=== PATIENT | male | born 1935 | race Caucasian/White ===

== ENCOUNTER 2016-12-02 10:30 | Emergency (ER) | payer BC ==
[~2016-12-02] VITALS: Ht 177.8 cm; Wt 106.6 kg
[~2016-12-02 10:30] MED LIST: AMOX-426 PO; ATOR80TA63 PO; DORZ10DR10 OP; FURO80TA86 PO; GLIP-195 PO; HYDR12.585 PO; LISI10TA5 PO; METH5TAB78 PO; WARF2TAB2 PO
[2016-12-02 10:50] VITALS: BP_SYST 117
[2016-12-02 11:28] VITALS: BP_SYST 138
== END 2016-12-02 11:28 | disposition home or self-care (01) ==
LOC: SED 10:30
DX: Z48.01 Encounter for change or removal of surgical wound dressing (principal); E11.9 Type 2 diabetes mellitus without complications; I10 Essential (primary) hypertension; M10.9 Gout, unspecified; N40.0 Benign prostatic hyperplasia without lower urinary tract symptoms; H54.41 Blindness, right eye, normal vision left eye; I48.91 Unspecified atrial fibrillation; Z87.891 Personal history of nicotine dependence; Z90.79 Acquired absence of other genital organ(s); Z79.899 Other long term (current) drug therapy
CPT/HCPCS: 99282

== ENCOUNTER 2017-12-18 09:34 | Inpatient (IN) | payer BC ==
[~2017-12-18] VITALS: Ht 172.7 cm; Wt 113.4 kg
[~2017-12-18 09:34] MED LIST changes: +ATOR-1 PO; -ATOR80TA63 PO; -GLIP-195 PO; +GLIP-212 PO
--- NOTE | 2017-12-18 09:34 | NUR ---
Pt placed in bed 2, EKG is being performed at bedside.
--- NOTE | 2017-12-18 09:35 | NUR ---
Pt presenst to ED c/o SOB and CP x 2 -3 days. Pt h/o HTN,DM and CHF. Pt has difficulty ambulating.
[2017-12-18 09:45] VITALS: BP_SYST 123
--- NOTE | 2017-12-18 10:10 | NUR ---
# 20 gauge angiocath placed to LAC. Use of asceptic technique. Opsite placed over site. Blood return noted. Blood for lab drawn from site. Flushed with 10 cc of normal saline. No evidence of infiltration noted. Patient tolerated well.
[2017-12-18] MEDS ORDERED: NS 500 ML IV ONE (10:30)
[2017-12-18 10:45] LABS: HEMATOCRIT 31.8 % (36-54); HEMOGLOBIN 9.8 g/dL (14.0-18.0); MEAN CORPUSCULAR HEMOGLOBIN 26 pg (27-31); MEAN CORPUSCULAR HGB CONC 31 % (32-36); MEAN CORPUSCULAR VOLUME 84 fL (79.0-98.0); PLATELET COUNT (AUTO) 203 K/uL (130-430); RED BLOOD CELL COUNT(AUTO) 3.78 MIL/uL (4.2-6.2); RED CELL DISTRIBUTION WIDTH 16.7 % (9.0-15.0); WHITE BLOOD COUNT (AUTO) 7.7 K/uL (4.8-10.8)
[2017-12-18 10:55] LABS: ANION GAP 4 (5-15); CALCIUM 9.4 mg/dL (8.4-11.0); CHLORIDE 104 mmol/L (98-107); CREATININE 1.92 mg/dL (0.55-1.30); GLUCOSE 127 mg/dL (70-99); POTASSIUM 4.3 mmol/L (3.5-5.1); SODIUM SERUM 140 mmol/L (136-145); UREA NITROGEN, BLOOD 27 mg/dL (8-21)
[2017-12-18 11:00] LABS: INR 1.4 (0.80-1.20); PROTHROMBIN TIME 14.3 SECS (9.5-12.5)
[2017-12-18 11:04] LABS: ALANINE AMINOTRANSFERASE 18 U/L (12-78); ALBUMIN 3.2 g/dL (3.4-4.8); ASPARTATE AMINOTRANSFERASE 24 U/L (10-37); TOTAL BILIRUBIN 1.1 mg/dL (0.0-1.0)
--- NOTE | 2017-12-18 11:10 | NUR ---
Pt tolerating IVF. No acute distrwess noted.
[2017-12-18] MEDS ORDERED: IOHEXOL 350 mgI/mL, 150 ML INFUS..BTL IV ONE (11:19)
[2017-12-18 11:26] LABS: BASOPHILS % (MANUAL) 0 % (0-2); EOSINOPHILS % (MANUAL) 4 % (0-7); LYMPHOCYTES % (MANUAL) 8 % (20-46); MONOCYTES % (MANUAL) 12 % (0-11)
[2017-12-18] MEDS ORDERED: IOHEXOL 100 ML IV ONE (11:46)
[2017-12-18] MEDS ORDERED: ASPIRIN 81 MG TAB.CHEW PO ONE (12:45)
--- NOTE | 2017-12-18 12:52 | NUR ---
Medication reconciliation completed with information provided by patient. Any prior medication reconciliation on file was reviewed and corrected.
--- NOTE | 2017-12-18 13:08 | NUR ---
ADMISSION NOTE Received patient from ER via [place], received report from BRENDEN ROSE. Patient admitted with diagnosis of CHEST PAIN. Patient oriented to hospital routine, call light, toileting and safety-patient verbalized understanding.
--- NOTE | 2017-12-18 13:13 | NUR ---
Patient will be admitted [facility] Admitted to TELEMETRY unit. Will go to room 122A. Belongings list completed. Summary report printed. Report will be given at bedside.
[2017-12-18 13:24] VITALS: BP_SYST 155
--- NOTE | 2017-12-18 14:30 | NUR ---
Initial Physical Assessment: Patient awake, alert and oriented. Stable. Ambulatory with steady gait. No skin issues. Safety measures in placed. Call light within reach.
--- NOTE | 2017-12-18 14:39 | NUR ---
Cardiac consult called: for chest pain, regarding chest pain, ordered by Dr. Servin, spoke with Marlene.
--- NOTE | 2017-12-18 15:02 | NUR ---
rounds: patient on bed resting. verbalized pain minimal. no distress noted.
--- NOTE | 2017-12-18 16:10 | NUR ---
Nephro consult called: for Dr. Reynoso, regarding renal failure, ordered by Dr. Servin, spoke with Jacqueline.
[2017-12-18 16:40] VITALS: BP_SYST 129
--- NOTE | 2017-12-18 17:31 | NUR ---
rounds: patient on bed resting. no distress noted.
[2017-12-18] MEDS ORDERED: WARFARIN SODIUM 2 MG TABLET PO SCH (18:00)
[2017-12-18 18:53] LABS: BILIRUBIN,URINE NEGATIVE (NEGATIVE); BLOOD, URINE TRACE (NEGATIVE); CLARITY/URINE SL CLOUDY (CLEAR); COLOR,URINE YELLOW (YELLOW); GLUCOSE,URINE NEGATIVE (NEGATIVE); KETONES,URINE NEGATIVE (NEGATIVE); LEUKOCYTE ESTERASE ,URINE 2+ (NEGATIVE); NITRITE, URINE NEGATIVE (NEGATIVE); PH,URINE 6.5 (5.0-8.0); PROTEIN URINE NEGATIVE (NEGATIVE); UROBILINOGEN,URINE 0.2 (0.2-1.0)
[2017-12-18 18:59] LABS: BACTERIA,URINE MODERATE /HPF (None Seen); RBC,URINE 0-3 /HPF (0-3); WBC,URINE 20-50 /HPF (0-3)
--- NOTE | 2017-12-18 19:35 | NUR ---
Closing notes: Patient on bed resting. Stable. Needs attended. Safety measures in placed. Call light within reach. Report given at bedside to ROSE Ramirez.
[2017-12-18 20:20] VITALS: BP_SYST 134
--- NOTE | 2017-12-18 20:20 | NUR ---
Opening notes Pt AAO x4, AGUA CALIENTE, no acute distress noted. VSS, pt denies any pain at this time. Saline lock L. AC 20G clear, patent. Call light within reach. Encouraged pt to call for assistance, pt verbalized understanding. Will continue to monitor.
[2017-12-18] MEDS: DORZOLAMIDE HCL/TIMOLOL MAL. 10 ML EYE DROPS (COSOPT) OP SCH (20:56)
--- NOTE | 2017-12-18 22:25 | NUR ---
Dr. Narvaez here to see pt.
[2017-12-19 00:22] VITALS: BP_SYST 134
--- NOTE | 2017-12-19 02:30 | NUR ---
Rounds Pt asleep. No s/s distress noted. Safety measure in place. Call light within reach. To monitor.
[2017-12-19 03:41] LABS: ANION GAP 2 (5-15); CHLORIDE 103 mmol/L (98-107); CREATININE 2.04 mg/dL (0.55-1.30); GLUCOSE 96 mg/dL (70-99); POTASSIUM 4.1 mmol/L (3.5-5.1); SODIUM SERUM 141 mmol/L (136-145); UREA NITROGEN, BLOOD 30 mg/dL (8-21)
[2017-12-19 03:45] LABS: INR 1.6 (0.80-1.20)
--- NOTE | 2017-12-19 06:05 | NUR ---
Closing notes Pt asleep. No s/s distress noted. L. AC 20G saline lock clear, patent. Call light within reach. Safety measure in place. To endorse to am nurse.
[2017-12-19] MEDS ORDERED: NACL 0.9% 1,000 ML IV SCH (07:37)
[2017-12-19] MEDS ORDERED: glipiZIDE XL 5 MG TAB ( GLUCOTROL XL) PO SCH (08:00)
[2017-12-19 08:06] VITALS: BP_SYST 153
--- NOTE | 2017-12-19 08:11 | NUR ---
Initial notes: Patient on bed awake, alert and oriented. Stable. i.v. access patent. Discussed plan of care. Safety measures in placed. Call light within reach. Report received from ROSE Ramirez at bedside.
[2017-12-19] MEDS: DORZOLAMIDE HCL/TIMOLOL MAL. 10 ML EYE DROPS (COSOPT) OP SCH (08:46)
--- NOTE | 2017-12-19 08:51 | NUR ---
2DECHO: 2DECHO done at bedside.
[2017-12-19] MEDS ORDERED: ATORVASTATIN 20 MG TABLET PO SCH (09:00)
[2017-12-19] MEDS ORDERED: LISINOPRIL 10 MG TABLET (PRINIVIL) PO SCH (09:00)
[2017-12-19] MEDS ORDERED: ACETYLCYSTEINE 20% 800 MG/4 ML VIAL (ORAL) PO SCH (09:00)
[2017-12-19] MEDS ORDERED: FUROSEMIDE 80 MG TABLET PO SCH (09:00)
[2017-12-19] MEDS ORDERED: HYDROCHLOROTHIAZIDE 12.5 MG CAPSULE (HCTZ) PO SCH (09:00)
--- NOTE | 2017-12-19 09:03 | NUR ---
Renal U/S: Renal U/S done at bedside.
--- NOTE | 2017-12-19 11:37 | NUR ---
rounds: patient sitting on the bed. no distress noted.
[2017-12-19 12:12] VITALS: BP_SYST 142
--- NOTE | 2017-12-19 13:00 | NUR ---
Conversation with Dr. Servin and Dr. Reynoso: Informed Dr. Servin patient wants to go home and follow up of the discharge order. Read the renal ultra sound. He cleared the patient to go home and to follow up outpatient Urologist. Dr. Reynoso also said ok to discharge. Stop lasix for 5 days. To see his office in 2 weeks. Informed patient and .
[2017-12-19 14:22] VITALS: BP_SYST 142
--- NOTE | 2017-12-31 14:23 | NUR ---
Discharge Follow Up Phone Call FIBER DRIER OPERATOR phoned the number listed for patient, , but it was a non working number. FIBER DRIER OPERATOR phoned patient's , Zabrina [phone]. Zabrina stated that patient was doing well. Patient has attended follow up appointments with library paraprofessional, Dr Reynoso, and PCP Dr Wells. His Lasix dosage has been figured out. Patient's blood sugars are stable. Zabrina stated they had no questions or concerns.
== END 2017-12-19 14:50 | disposition home or self-care (01) | DRG 392 ==
LOC: SED 09:34 → STU 12:39
PROVIDERS: ADMIT Internal Medicine Hospice and Palliative Medicine; ATTEND Internal Medicine Hospice and Palliative Medicine
DX: K21.9 Gastro-esophageal reflux disease without esophagitis (principal); E44.1 Mild protein-calorie malnutrition; K80.20 Calculus of gallbladder without cholecystitis without obstruction; D64.9 Anemia, unspecified; E03.9 Hypothyroidism, unspecified; E11.22 Type 2 diabetes mellitus with diabetic chronic kidney disease; E66.9 Obesity, unspecified; E78.5 Hyperlipidemia, unspecified; I12.9 Hypertensive chronic kidney disease with stage 1 through stage 4 chronic kidney disease, or unspecified chronic kidney disease; N18.9 Chronic kidney disease, unspecified; H54.61 Unqualified visual loss, right eye, normal vision left eye; N40.0 Benign prostatic hyperplasia without lower urinary tract symptoms; M10.9 Gout, unspecified; G89.29 Other chronic pain; M54.9 Dorsalgia, unspecified; R10.13 Epigastric pain; M54.2 Cervicalgia; I48.2 Chronic atrial fibrillation; Z79.01 Long term (current) use of anticoagulants; Z90.79 Acquired absence of other genital organ(s); Z79.899 Other long term (current) drug therapy; Z79.84 Long term (current) use of oral hypoglycemic drugs; Z85.9 Personal history of malignant neoplasm, unspecified; Z68.38 Body mass index [BMI] 38.0-38.9, adult; N18.3 Chronic kidney disease, stage 3 (moderate)
CPT/HCPCS: 36415; 71045; 71275; 74175; 76770; 80048; 80053; 81000-TC; 82550-TC; 83880; 84484; 85007; 85027; 85379; 85610-TC; 85730-TC; 93005; 93306; 96360; 99285; J7030; J7040; Q9967

== ENCOUNTER 2018-10-09 16:51 | Outpatient (CLI) | payer BC ==
[~2018-10-09 16:51] MED LIST changes: -AMOX-426 PO; -FURO80TA86 PO; -GLIP-212 PO; +GLIP5TAB26 PO; +METH5TAB6 PO; -METH5TAB78 PO
== END 2018-10-09 21:10 | disposition home or self-care (01) ==
LOC: SRD 16:51
PROVIDERS: ATTEND Specialist
DX: J90 Pleural effusion, not elsewhere classified (principal); I51.7 Cardiomegaly
CPT/HCPCS: 71046-TC

== ENCOUNTER 2018-10-31 11:00 | Outpatient (CLI) | payer BC ==
[2018-10-31 15:10] LABS: BF APPEARANCE UNSPUN HAZY (CLEAR); BODY FLUID SOURCE/ TYPE PLEURAL; SOURCE/TYPE ,BODY FLUID THORACENTESIS
[2018-10-31 15:13] LABS: APPEARANCE,SPUN,BODY FLUID SLIGHTLY HAZY (CLEAR); BODY FLUID COLOR DARK YELLOW (LT YELLOW); BODY FLUID TOTAL VOLUME 2600 mL; MONOCYTES,BODY FLUID 39 %; NEUTROPHIL, BODY FLUID 61 %; RBC, BODY FLUID 778 /uL; WBC, BODY FLUID 114 /uL
[2018-10-31 18:53] LABS: BODY FLUID GLUCOSE 129 mg/dL; BODY FLUID TOTAL PROTEIN 5.6 g/dL
== END 2018-10-31 20:56 | disposition home or self-care (01) ==
LOC: SRD 11:00
PROVIDERS: ATTEND Specialist
DX: J90 Pleural effusion, not elsewhere classified (principal); I51.7 Cardiomegaly; I70.90 Unspecified atherosclerosis; J18.9 Pneumonia, unspecified organism
CPT/HCPCS: 32555; 71045; 71046-TC; 82947-TC; 84157-TC; 87070-TC; 88108; 89051-TC; 89060-TC

== ENCOUNTER 2018-11-26 10:35 | Outpatient (CLI) | payer BC | END 2018-11-26 21:15 | disposition home or self-care (01) | LOC: SRD 10:35 | DX: J90 Pleural effusion, not elsewhere classified (principal); I70.90 Unspecified atherosclerosis; I51.7 Cardiomegaly | CPT/HCPCS: 32555; 71045; 71046; C1729 ==

== ENCOUNTER 2018-11-28 10:33 | Outpatient (CLI) | payer BC ==
[2018-11-28] MEDS ORDERED: IOHEXOL 100 ML IV ONE (11:28)
== END 2018-11-28 20:59 | disposition home or self-care (01) ==
LOC: SRD 10:33
PROVIDERS: ATTEND Specialist
DX: I25.10 Atherosclerotic heart disease of native coronary artery without angina pectoris (principal); E04.1 Nontoxic single thyroid nodule
CPT/HCPCS: 71260; Q9967

== ENCOUNTER 2018-12-19 12:25 | Outpatient (CLI) | payer BC ==
[2018-12-20] MEDS ORDERED: ALLO100T91 PO (11:58)
[2018-12-20] MEDS ORDERED: FURO80TA86 PO (11:58)
[2018-12-20] MEDS ORDERED: METF-510 PO (11:58)
[2018-12-20] MEDS ORDERED: METO25TA6 PO (11:58)
[2018-12-20] MEDS ORDERED: TAMS-11 PO (11:58)
== END 2018-12-19 20:25 | disposition home or self-care (01) ==
LOC: SRD 12:25
PROVIDERS: ATTEND Specialist
DX: J90 Pleural effusion, not elsewhere classified (principal); I11.9 Hypertensive heart disease without heart failure
CPT/HCPCS: 71045; 76604

== ENCOUNTER 2018-12-19 15:34 | Inpatient (IN) | payer BC ==
[~2018-12-19] VITALS: Ht 175.3 cm; Wt 94.8 kg
[2018-12-19 15:47] VITALS: BP_SYST 138
--- NOTE | 2018-12-19 15:51 | NUR ---
Patient to ER bed 02 to gown for evaluation. Side rails up.
--- NOTE | 2018-12-19 16:00 | NUR ---
Note bobmaye in EDM - 12/19/18 at 1929 by [id number] pt was told by his PMD to come to ED for SOB. Pt has hx of having plueral effusions and has needed thoracentesis in the past. Caradiac monitor placed. EKG done.
--- NOTE | 2018-12-19 16:00 | NUR ---
pt was told by his PMD to come to the ER for increasing SOB. pt reports hx of having plueral effusions needing thoracentesis. potline monitor placed. EKG done.
[2018-12-19] MEDS ORDERED: NITROGLYCERIN 1 INCH (GM) OINT. TP ONE (16:30)
--- NOTE | 2018-12-19 16:30 | NUR ---
pt currently getting a breathng tx at the bedside.
[2018-12-19 17:06] LABS: ANION GAP 9 (5-15); CALCIUM 9.4 mg/dL (8.4-11.0); CHLORIDE 98 mmol/L (98-107); CREATININE 1.81 mg/dL (0.55-1.30); GLUCOSE 128 mg/dL (70-99); SODIUM SERUM 140 mmol/L (136-145); UREA NITROGEN, BLOOD 24 mg/dL (8-21)
[2018-12-19 17:08] LABS: POTASSIUM 2.6 mmol/L (3.5-5.1)
[2018-12-19 17:11] LABS: ALANINE AMINOTRANSFERASE 13 U/L (12-78); ASPARTATE AMINOTRANSFERASE 26 U/L (10-37); TOTAL BILIRUBIN 0.6 mg/dL (0.0-1.0)
[2018-12-19 17:15] LABS: BASOPHILS # (AUTO) 0.1 K/uL (0.0-0.2); EOSINOPHILS # (AUTO) 0.1 K/uL (0.0-0.4); EOSINOPHILS % (AUTO) 0.7 % (0.0-4.0); HEMATOCRIT 29.2 % (36-54); HEMOGLOBIN 9.5 g/dL (14.0-18.0); LYMPHOCYTES # (AUTO) 0.8 K/uL (1.0-5.5); LYMPHOCYTES % (AUTO) 8.8 % (20.5-51.5); MEAN CORPUSCULAR HEMOGLOBIN 26 pg (27-31); MEAN CORPUSCULAR HGB CONC 33 % (32-36); MEAN CORPUSCULAR VOLUME 80 fL (79.0-98.0); MONOCYTES # (AUTO) 0.9 K/uL (0.0-1.0); MONOCYTES % (AUTO) 10.9 % (1.7-9.3); NEUTROPHILS # (AUTO) 6.8 K/uL (1.8-7.7); NEUTROPHILS % (AUTO) 78.6 % (40.0-70.0); PLATELET COUNT (AUTO) 356 K/uL (130-430); RED BLOOD CELL COUNT(AUTO) 3.67 MIL/uL (4.2-6.2); RED CELL DISTRIBUTION WIDTH 18.2 % (9.0-15.0); WHITE BLOOD COUNT (AUTO) 8.6 K/uL (4.8-10.8)
[2018-12-19] MEDS ORDERED: POTASSIUM CHLORIDE 40 MEQ in NS 250 ML IV ONE (17:15)
[2018-12-19] MEDS ORDERED: POTASSIUM CHLORIDE 20 MEQ TAB.PRT.SR PO ONE (17:15)
[2018-12-19 17:21] LABS: PROTHROMBIN TIME 48.1 SECS (9.5-12.5)
[2018-12-19 17:22] LABS: INR 4.9 (0.80-1.20)
--- NOTE | 2018-12-19 17:30 | NUR ---
40 of K-rider and 40 of k-jules 40. for K of 2.8.
[2018-12-19 17:40] LABS: ALBUMIN 2.3 g/dL (3.4-4.8)
[2018-12-19] MEDS ORDERED: KCL 20 mEq in 100 mL (PREMIX) 0 ML IV ONE (18:03)
[2018-12-19 18:14] LABS: BILIRUBIN,URINE NEGATIVE (NEGATIVE); CLARITY/URINE CLEAR (CLEAR); COLOR,URINE YELLOW (YELLOW); GLUCOSE,URINE NEGATIVE (NEGATIVE); KETONES,URINE NEGATIVE (NEGATIVE); LEUKOCYTE ESTERASE ,URINE NEGATIVE (NEGATIVE); NITRITE, URINE NEGATIVE (NEGATIVE); PROTEIN URINE NEGATIVE (NEGATIVE)
[2018-12-19] MEDS ORDERED: INSULIN REGULAR, HUMAN 100 UNITS/ML, 10 ML VIAL (humuLIN R) SUBCUT PRN (18:15)
[2018-12-19] MEDS ORDERED: IPRATROPIUM BROM 0.5 MG/2.5 ML VIAL.NEB (ATROVENT) INH PRN (18:15)
[2018-12-19] MEDS ORDERED: cefTRIAXone 1 GM in D5W 50 ML IV SCH (18:15)
[2018-12-19] MEDS ORDERED: ALBUTEROL SULFATE 0.083% 2.5 MG/3 ML VIAL.NEB INH PRN (18:15)
[2018-12-19] MEDS ORDERED: DEXTROSE 50% JECT 50 ML DISP.SYRIN IVP PRN (18:15)
[2018-12-19 18:18] LABS: BLOOD, URINE TRACE (NEGATIVE)
--- NOTE | 2018-12-19 18:20 | NUR ---
# 22 gauge angiocath placed to left chest. Use of asceptic technique. Opsite placed over site. Blood return noted. Blood for lab drawn from site. Flushed with 10 cc of normal saline. No evidence of infiltration noted. Patient tolerated well.
[2018-12-19 18:36] LABS: BACTERIA,URINE FEW /HPF (None Seen); MUCUS,URINE None Seen /LPF (None Seen); WBC,URINE 0-3 /HPF (0-3)
--- NOTE | 2018-12-19 18:45 | NUR ---
Currently waiting for a tele bed. Spoke with Jazmyne ROSE
[2018-12-19] MEDS: ALBUTEROL SULFATE 0.083% 2.5 MG/3 ML VIAL.NEB INH SCH (19:00)
[2018-12-19] MEDS: IPRATROPIUM BROM 0.5 MG/2.5 ML VIAL.NEB (ATROVENT) INH SCH (19:00)
--- NOTE | 2018-12-19 19:15 | NUR ---
Care endorse to Melissa ROSE. pt in stable condition
--- NOTE | 2018-12-19 19:20 | NUR ---
RECIVED REPORT FROM CORDELL. PT AA0X3, SKIN W/D TO TOUCH, POS PULSES, +1 JIM. IV R CW W/ 40KCL /250 NS INFUSING PER ORDERS, VS- WNL. PENDING A BED FOR D/C FROM ED.
--- NOTE | 2018-12-19 19:20 | NUR ---
RECIEVED REPORT FROM CORDELL ROSE. VS WNL. PENDING ADMIT BED.
[2018-12-19 19:30] VITALS: BP_SYST 147
--- NOTE | 2018-12-19 20:10 | NUR ---
ADMISSION NOTE Received patient from ER via gurney. Patient admitted with diagnosis of PLEURAL EFFUSION, PNEUMONIA. Patient is awake, alert, oriented X 4. Patient oriented to hospital room, call light, toileting, pain management and safety-teach back done. Patient informed that this RN will be jis nurse and that their room number is 114-B. Personal belongings checked and Belongings List documented. Call light within reach.
--- NOTE | 2018-12-19 20:15 | NUR ---
PATIENT ADMITTED TO 114 B, BEDSIDE REPORT GIVEN TO REEMA.
[2018-12-19] MEDS ORDERED: cefTRIAXone 1 GM VIAL ONE (21:56)
[2018-12-19] MEDS ORDERED: AZITHROMYCIN 500 MG/VIAL (ZITHROMAX) IV ONE (21:57)
--- NOTE | 2018-12-19 22:02 | NUR ---
PAGED PAGING THE SHEEP FARM MANAGER PHYSICIAN DR. CLARK. SPOKE WITH
--- NOTE | 2018-12-19 22:51 | NUR ---
PAGED x2 SECOND PAGE SENT TO DR. CLARK, SPOKE WITH BEER
--- NOTE | 2018-12-19 23:41 | NUR ---
IV PLACEMENT: # 22 gauge angiocath placed to left forearm by ROSE Melchor. Use of asceptic technique. Opsite placed over site. Blood return noted. Flushed with 5 ML of normal saline. No evidence of infiltration noted. Patient tolerated well.
[2018-12-20] MEDS: AZITHROMYCIN 500 MG in NS 250 ML IV SCH ×2 (00:52→22:49)
[2018-12-20] MEDS: IPRATROPIUM BROM 0.5 MG/2.5 ML VIAL.NEB (ATROVENT) INH SCH ×4 (00:54→20:33)
--- NOTE | 2018-12-20 01:00 | NUR ---
Blood sugar: Patient's blood sugar is 116. Sliding scale insulin not indicated. Will continue to monitor.
[2018-12-20] MEDS: ALBUTEROL SULFATE 0.083% 2.5 MG/3 ML VIAL.NEB INH SCH ×4 (01:04→20:33)
[2018-12-20 02:45] VITALS: BP_SYST 118
--- NOTE | 2018-12-20 04:08 | NUR ---
Rounds: Patient is resting in bed, no acute distress. Even, unlabored breathing on 2L NC. IV sites are benign, saline locked. Call light is with patient. Will continue monitoring.
[2018-12-20 07:09] LABS: BASOPHILS % (AUTO) 0.5 % (0.0-2.0); EOSINOPHILS # (AUTO) 0.1 K/uL (0.0-0.4); EOSINOPHILS % (AUTO) 1.6 % (0.0-4.0); HEMATOCRIT 25.8 % (36-54); HEMOGLOBIN 8.4 g/dL (14.0-18.0); LYMPHOCYTES # (AUTO) 0.8 K/uL (1.0-5.5); LYMPHOCYTES % (AUTO) 12.8 % (20.5-51.5); MEAN CORPUSCULAR HEMOGLOBIN 26 pg (27-31); MEAN CORPUSCULAR HGB CONC 33 % (32-36); MEAN CORPUSCULAR VOLUME 79 fL (79.0-98.0); MONOCYTES # (AUTO) 0.9 K/uL (0.0-1.0); MONOCYTES % (AUTO) 13.2 % (1.7-9.3); NEUTROPHILS # (AUTO) 4.7 K/uL (1.8-7.7); NEUTROPHILS % (AUTO) 71.9 % (40.0-70.0); PLATELET COUNT (AUTO) 306 K/uL (130-430); RED BLOOD CELL COUNT(AUTO) 3.29 MIL/uL (4.2-6.2); RED CELL DISTRIBUTION WIDTH 18.3 % (9.0-15.0); WHITE BLOOD COUNT (AUTO) 6.5 K/uL (4.8-10.8)
[2018-12-20 07:38] LABS: INR 4.6 (0.80-1.20); PROTHROMBIN TIME 44.9 SECS (9.5-12.5)
[2018-12-20 07:44] LABS: ALANINE AMINOTRANSFERASE 13 U/L (12-78); ALBUMIN 1.9 g/dL (3.4-4.8); ANION GAP 6 (5-15); ASPARTATE AMINOTRANSFERASE 20 U/L (10-37); CALCIUM 8.7 mg/dL (8.4-11.0); CHLORIDE 104 mmol/L (98-107); CREATININE 1.56 mg/dL (0.55-1.30); GLUCOSE 103 mg/dL (70-99); POTASSIUM 3.5 mmol/L (3.5-5.1); SODIUM SERUM 145 mmol/L (136-145); TOTAL BILIRUBIN 0.4 mg/dL (0.0-1.0); UREA NITROGEN, BLOOD 20 mg/dL (8-21)
[2018-12-20] MEDS: glipiZIDE XL 5 MG TAB ( GLUCOTROL XL) PO SCH ×2 (07:54→11:09)
[2018-12-20 08:00] VITALS: BP_SYST 116
--- NOTE | 2018-12-20 10:11 | NUR ---
CONSULTATION PAGED/CALLED Reason for Consultation: [] PLEURAL EFFUSION Person Who was Notified: [] LEFT A VOICE MESSAGE/MITRA Consulting Physician: [] DR Oliva MILLS Gis Programmer Specialty: [] PULM Ordering Physician: [] DR Fabiana CLARK
--- NOTE | 2018-12-20 10:11 | NUR ---
Nutrition Update Byron Scale 18 noted. Pt admitted for pleural effusion, pneumonia. Diet: 2 gm Na BMI: 30.9 kg/m2 RD to follow per nutrition care standards.
--- NOTE | 2018-12-20 10:26 | NUR ---
RECEIVED A CALL BACK FROM DR MILLS'S OFFICE ACKNOWLEDGING THE CONSULT. SPOKE TO MITRA.
[2018-12-20] MEDS: ATORVASTATIN 20 MG TABLET PO SCH (11:09)
[2018-12-20] MEDS: LISINOPRIL 10 MG TABLET (PRINIVIL) PO SCH (11:11)
[2018-12-20] MEDS: METHIMAZOLE 5 MG TABLET PO SCH (11:22)
[2018-12-20] MEDS ORDERED: ALLO100T91 PO (11:58)
[2018-12-20] MEDS ORDERED: METO25TA6 PO (11:58)
[2018-12-20] MEDS ORDERED: METF-510 PO (11:58)
[2018-12-20] MEDS ORDERED: FURO80TA86 PO (11:58)
[2018-12-20] MEDS ORDERED: TAMS-11 PO (11:58)
[2018-12-20 12:48] VITALS: BP_SYST 137
[2018-12-20 16:48] VITALS: BP_SYST 118
[2018-12-20] MEDS: PIPERACILLIN/TAZO 2.25G/DEX-IS 50 ML IV SCH ×2 (18:48→23:55)
--- NOTE | 2018-12-20 19:00 | NUR ---
Patient is awake and alert, oriented x 4. No co pain. Patient is ambulatory with brp steady gait. Patient occasionally uses 02 2L NC. He did receive 1 unit of FFP, and tolerated well. On accu check with no sliding scale necessary today. Chandu Troy RN
--- NOTE | 2018-12-20 19:30 | NUR ---
PM ASSESSMENT REPORT RECEIVED FROM AM RN. PT RECEIVED IN BED WITH EYES OPEN, AAOX4, AND ABLE TO VERBALIZE NEEDS. VSS, NO S/S OF ACUTE DISTRESS NOTED. PT ON 2L NC. A-FIB ON MONITOR. L WRIST 22G IN PLACE, PATENT AND INTACT. PT DENIES ANY PAIN OR DISCOMFORT AT THIS TIME. HOB ELEVATED, BED IN LOWEST POSITION, CALL LIGHT IN REACH. WILL CONTINUE TO MONITOR PT.
[2018-12-20 20:00] VITALS: BP_SYST 157
--- NOTE | 2018-12-20 20:24 | NUR ---
FFP INITIATION: Consent signed per PT agreeing to administration of FFP. Blood PRODUCT has been type and crossmatched. Blood PRODUCT sent from blood bank. Information on unit of blood PRODUCT checked against patient wristband at bedside by two nurses. All information matches. Patient or responsible constitution party informed of potential complications associated with blood PRODUCT transfusion. Informed of possible transfusion reaction symptoms. Aware of need to notify nurse at once of itching, shortness of breath, flushing, feeling of impending doom, or other symptoms not previously present. Vital signs taken within 5 minutes prior to initiation of transfusion. RN will remain with patient for first 15 minutes of transfusion at which time vital signs will be re-assessed.
[2018-12-20] MEDS ORDERED: AZITHROMYCIN 500 MG/VIAL (ZITHROMAX) IV ONE (22:36)
--- NOTE | 2018-12-20 22:39 | NUR ---
FFP FFP COMPLETED AT THIS TIME. NO S/S OF TRANSFUSION REACTION NOTED. WILL CONTINUE TO MONITOR PT.
--- NOTE | 2018-12-20 23:58 | NUR ---
ZITHROMYCIN ABX GIVEN LATE D/T PT NEED FOR FFP TRANSFUSION. Addendum: 12/21/18 at 0212 by Nikki Henderson RN WRONG TIME: CORRECT TIME 3021
--- NOTE | 2018-12-20 23:58 | NUR ---
BREATHING TX PT C/O SOB AT THIS TIME. RT MADE AWARE AND BREATHING TX WILL BE ADMINISTERED. WILL CONTINUE TO MONITOR PT.
[2018-12-21 01:03] VITALS: BP_SYST 132
[2018-12-21] MEDS: ALBUTEROL SULFATE 0.083% 2.5 MG/3 ML VIAL.NEB INH SCH ×3 (02:04→19:32)
[2018-12-21] MEDS: IPRATROPIUM BROM 0.5 MG/2.5 ML VIAL.NEB (ATROVENT) INH SCH ×3 (02:04→19:32)
--- NOTE | 2018-12-21 02:08 | NUR ---
FFP INITIATION: Consent signed per PT agreeing to administration of FFP. Blood PRODUCT has been type and crossmatched. Blood PRODUCT sent from blood bank. Information on unit of blood PRODUCT checked against patient wristband at bedside by two nurses. All information matches. Patient or responsible constitution party informed of potential complications associated with blood PRODUCT transfusion. Informed of possible transfusion reaction symptoms. Aware of need to notify nurse at once of itching, shortness of breath, flushing, feeling of impending doom, or other symptoms not previously present. Vital signs taken within 5 minutes prior to initiation of transfusion. RN will remain with patient for first 15 minutes of transfusion at which time vital signs will be re-assessed. Addendum: 12/21/18 at 0210 by Nikki Henderson RN TIMED WRONG.
--- NOTE | 2018-12-21 03:00 | NUR ---
RN ROUNDS PT MADE COMFORTABLE IN BED AT THIS TIME. ALL NEEDS ATTENDED TO. NO S/S OF ACUTE DISTRESS NOTED. BREATHING IS EVEN AND UNLABORED ON 2L NC. WILL CONTINUE TO MONITOR PT.
[2018-12-21] MEDS: PIPERACILLIN/TAZO 2.25G/DEX-IS 50 ML IV SCH ×4 (05:20→23:38)
--- NOTE | 2018-12-21 07:24 | NUR ---
ENDORSEMENT BEDSIDE REPORT GIVEN TO WILY ROSE USING SBAR APPROACH.
--- NOTE | 2018-12-21 07:50 | NUR ---
OPENING NOTE RECEIVED PATIENT IN BED. PATIENT IS A/OX4. DENIES PAIN. CONT ON 02@2L/M VIA NC; MARINA WELL SpO2@93%. NO ACUTE DISTRESS. SKIN WARM AND DRY TO TOUCH. IV INTACT AND PATENT. BILAT LOWER EXT EDEMA NOTED. TRANSFERRED PATIENT FROM BED TO CHAIR WITH ASSIST FOR BREAKFAST; MARINA WELL. DISCUSSED PLAN OF CARE WITH PATIENT; PT VERBALIZED UNDERSTANDING. ALL NEEDS MET. CALL LIGHT IN REACH. CONT TO MONITOR
[2018-12-21 07:55] LABS: BASOPHILS % (AUTO) 0.2 % (0.0-2.0); EOSINOPHILS # (AUTO) 0.1 K/uL (0.0-0.4); EOSINOPHILS % (AUTO) 0.7 % (0.0-4.0); HEMATOCRIT 28.6 % (36-54); HEMOGLOBIN 9.1 g/dL (14.0-18.0); LYMPHOCYTES # (AUTO) 0.7 K/uL (1.0-5.5); LYMPHOCYTES % (AUTO) 7.1 % (20.5-51.5); MEAN CORPUSCULAR HEMOGLOBIN 25 pg (27-31); MEAN CORPUSCULAR HGB CONC 32 % (32-36); MEAN CORPUSCULAR VOLUME 80 fL (79.0-98.0); MONOCYTES # (AUTO) 0.9 K/uL (0.0-1.0); MONOCYTES % (AUTO) 9.8 % (1.7-9.3); NEUTROPHILS # (AUTO) 7.9 K/uL (1.8-7.7); NEUTROPHILS % (AUTO) 82.2 % (40.0-70.0); PLATELET COUNT (AUTO) 328 K/uL (130-430); WHITE BLOOD COUNT (AUTO) 9.6 K/uL (4.8-10.8)
[2018-12-21 08:00] VITALS: BP_SYST 128
[2018-12-21 08:28] LABS: INR 2.7 (0.80-1.20)
[2018-12-21] MEDS: ATORVASTATIN 20 MG TABLET PO SCH (08:42)
[2018-12-21] MEDS: glipiZIDE XL 5 MG TAB ( GLUCOTROL XL) PO SCH (08:42)
[2018-12-21] MEDS: LISINOPRIL 10 MG TABLET (PRINIVIL) PO SCH (08:43)
--- NOTE | 2018-12-21 08:45 | NUR ---
MEDS DUE MEDICATIONS ADMINISTERED ORDERED, MARINA WELL. TAPAZOLE NOT AVAILABLE; AWAITING FOR PHARMACY TO REFILL PYXIS. TEACHING DONE ON MEDICATION AND ASE. ALL NEEDS MET. CONT TO MONITOR
[2018-12-21] MEDS: METHIMAZOLE 5 MG TABLET PO SCH (09:30)
--- NOTE | 2018-12-21 10:39 | NUR ---
NOTE ULTRASOUND OF NECK DONE AT BEDSIDE BY TECH. PATIENT STABLE. CONT TO MONITOR
--- NOTE | 2018-12-21 11:10 | NUR ---
SEEN AND EXAMINED BY AT BEDSIDE
[2018-12-21 11:34] VITALS: BP_SYST 100
--- NOTE | 2018-12-21 12:09 | NUR ---
BS BLOOD GLUCOSE 155 mg/dL. PATIENT IS KEPT NPO FOR ABDOMINAL ULTRASOUND. HELD INSULIN AT THIS TIME.
--- NOTE | 2018-12-21 14:01 | NUR ---
NOTE PATIENT RESTING IN BED, EASILY AROUSABLE. NO C/O PAIN. NO ACUTE DISTRESS. NO SOB. ALL NEEDS MET. CONT TO MONITOR
--- NOTE | 2018-12-21 14:31 | NUR ---
RADIOLOGY SPOKE TO LEAD POURER AND US ABDOMEN WILL BE DONE AROUND [address] GUIDED THORACENTESIS WILL BE DONE TOMORROW MORNING DUE TO RADIOLOGIST NOT AVAILABLE TODAY. PATIENT MADE AWARE.
[2018-12-21 15:32] VITALS: BP_SYST 144
--- NOTE | 2018-12-21 15:40 | NUR ---
ABD US DONE AT BEDSIDE PATIENT STABLE. NO C/O PAIN. NO ACUTE DISTRESS. ALL NEEDS MET. CON TO MONITOR
--- NOTE | 2018-12-21 17:30 | NUR ---
THORACENTESIS/ SUPERVISOR ROD PLACING REPORTED THAT PER IN RADIOLOGY WILL NOT BE PERFORMING THORACENTESIS TOMORROW DUE TO NO FLUID BEING SEEN. PER IF HAS ANY QUESTIONS/CONCERNS TO CALL HIM DIRECTLY AT [phone]
[2018-12-21] MEDS: AZITHROMYCIN 500 MG in NS 250 ML IV SCH (18:29)
[2018-12-21] MEDS ORDERED: AZITHROMYCIN 500 MG/VIAL (ZITHROMAX) IV ONE (18:30)
--- NOTE | 2018-12-21 18:59 | NUR ---
CLOSING NOTE ASSISTED PATIENT TRANSFERRING FROM CHAIR BACK TO BED. NO C/O PAIN. NO ACUTE DISTRESS. NO SOB. CONT ON O2@2L/M VIA NC. IV INTACT AND PATENT. ALL NEEDS MET. BED IN LOW AND LOCKED POSITION. SIDERAIL UPX3. ALL NEEDS MET. CALL LIGHT IN REACH.
[2018-12-21 20:00] VITALS: BP_SYST 108
--- NOTE | 2018-12-21 20:30 | NUR ---
RN ASSUMED CARE OF PATIENT. HE IS AOX4. V/S WNL, NO S/S OF ACUTE DISTRESS NOTED. RESPIRATIONS EQUAL NONE LABORED. CURRENTLY ON NC-2L. AFIB ON MONITOR. PT DENIES ANY PAIN OR DISCOMFORT AT THIS TIME. HOB ELEVATED, BED IN LOWEST POSITION, CALL LIGHT IN REACH. WILL CONTINUE TO MONITOR PT.
--- NOTE | 2018-12-22 00:22 | NUR ---
PATIENT CURRENTLY SLEEPING. EYES CLOSED/CHEST RISING. NO S/S DISTRESS NOTED. WILL CONTINUE TO MONITOR.
[2018-12-22] MEDS: IPRATROPIUM BROM 0.5 MG/2.5 ML VIAL.NEB (ATROVENT) INH SCH ×4 (01:07→19:35)
[2018-12-22] MEDS: ALBUTEROL SULFATE 0.083% 2.5 MG/3 ML VIAL.NEB INH SCH ×4 (01:07→19:35)
[2018-12-22 01:10] VITALS: BP_SYST 134
[2018-12-22] MEDS: PIPERACILLIN/TAZO 2.25G/DEX-IS 50 ML IV SCH ×3 (05:58→17:13)
--- NOTE | 2018-12-22 06:00 | NUR ---
BS=54 PATIENT IS ASYMPTOMATIC. 16 OZ OJ PO GIVEN.
--- NOTE | 2018-12-22 06:28 | NUR ---
BS RECHECKED=95
[2018-12-22 07:42] LABS: INR 2.5 (0.80-1.20); PROTHROMBIN TIME 24.6 SECS (9.5-12.5)
--- NOTE | 2018-12-22 07:48 | NUR ---
OPENING NOTE RECEIVED PATIENT IN BED. PATIENT RECEIVING BREATHING TREATMENT AT THIS TIME; MARINA WELL. DENIES PAIN. NO ACUTE DISTRESS. NO SOB. RESPIRATION EVEN AND UNLABORED. SKIN WARM AND DRY TO TOUCH. IV INTACT AND PATENT. BED IN LOW AND LOCKED POSITION. SIDERAIL UPX3. REFUSE BED ALARM. ALL NEEDS MET. CALL LIGHT IN REACH. CONT TO MONITOR
[2018-12-22] MEDS: glipiZIDE XL 5 MG TAB ( GLUCOTROL XL) PO SCH (08:52)
[2018-12-22] MEDS: ATORVASTATIN 20 MG TABLET PO SCH (08:52)
[2018-12-22] MEDS: METHIMAZOLE 5 MG TABLET PO SCH (08:53)
[2018-12-22] MEDS: LISINOPRIL 10 MG TABLET (PRINIVIL) PO SCH (08:53)
[2018-12-22] MEDS: POTASSIUM CHLORIDE 8 MEQ TABLET.SA PO SCH (09:25)
[2018-12-22] MEDS: FUROSEMIDE 40 MG TABLET PO SCH (09:25)
--- NOTE | 2018-12-22 09:36 | NUR ---
NOTE SEEN AND EXAMINED BY AT BEDSIDE. ORDERED SPUTUM CX, LASIX AND KCL ORDERED; ORDER NOTED AND CARRIED OUT. ALL DUE MEDS ADMINISTERED, MARINA WELL. TEACHING ON MEDICATION AND ASE DONE.
[2018-12-22 11:08] VITALS: BP_SYST 134
--- NOTE | 2018-12-22 11:14 | NUR ---
REPORTED TO THAT IN RADIOLOGY WILL NOT BE DOING THE THORACENTESIS TODAY DUE TO FLUID IS LOCULATED AND RECOMMEND US GUIDED THORACENTESIS IF IT IS DONE. PER THE THORACENTESIS WILL BE DONE TOMORROW DUE TO PT/INR IS STILL TOO HIGH TODAY AND HE WILL DISCUSS IT WITH RADIOLOGY TOMORROW.
--- NOTE | 2018-12-22 11:18 | NUR ---
BS BLOOD GLUCOSE IS 176 mg/dL. PATIENT REFUSES INSULIN DUE TO BLOOD GLUCOSE WAS LOW THIS MORNING AND DOES NOT WANT IT TO DROP THAT LOW AGAIN. TEACHING DONE ON DM AND RISKS EXPLAINED. PATIENT VERBALIZED UNDERSTANDING AND CONT TO REFUSE.
[2018-12-22 12:00] VITALS: BP_SYST 100
--- NOTE | 2018-12-22 14:00 | NUR ---
NOTE ASSISTED PATIENT WITH TRANSFER FROM CHAIR TO BED, MARINA WELL. CONT ON O2@2L/M VIA NC. NO ACUTE DISTRESS. NO SOB. CONT TO MONITOR
--- NOTE | 2018-12-22 16:00 | NUR ---
NOTE ASSISTED PATIENT TO BATHROOM, MARINA WELL. SLOW STEADY GAIT. ALL NEEDS MET. CONT TO MONITOR. CALL LIGHT IN REACH
[2018-12-22 16:25] VITALS: BP_SYST 117
--- NOTE | 2018-12-22 17:15 | NUR ---
BS PATIENT BLOOD GLUCOSE IS 102 mg/dL WITH NO INSULIN COVERAGE NEEDED. ALL NEEDS MET. CONT TO MONITOR
[2018-12-22] MEDS: AZITHROMYCIN 500 MG in NS 250 ML IV SCH (18:02)
--- NOTE | 2018-12-22 18:42 | NUR ---
CLOSING NOTE PATIENT STABLE. AWAKE IN BED. NO ACUTE DISTRESS. NO SOB. SKIN WARM AND DRY TO TOUCH. NO S/SX HYPOGLYCEMIA NOTED. ALL NEEDS MET. BED IN LOW AND LOCKED POSITION. SIDERAIL UPX3. BED ALARM ON. CONT TO MONITOR. CALL LIGHT IN REACH.
[2018-12-23] MEDS: IPRATROPIUM BROM 0.5 MG/2.5 ML VIAL.NEB (ATROVENT) INH SCH ×3 (00:35→13:38)
[2018-12-23] MEDS: ALBUTEROL SULFATE 0.083% 2.5 MG/3 ML VIAL.NEB INH SCH ×3 (00:35→13:38)
[2018-12-23] MEDS: PIPERACILLIN/TAZO 2.25G/DEX-IS 50 ML IV SCH ×4 (00:37→17:21)
[2018-12-23 01:06] VITALS: BP_SYST 124
[2018-12-23 07:30] LABS: INR 1.8 (0.80-1.20); PROTHROMBIN TIME 18.1 SECS (9.5-12.5)
--- NOTE | 2018-12-23 07:30 | NUR ---
OPENING NOTES: RECEIVED PATIENT FROM COMMUNITY REINVESTMENT ACT OFFICER NURSE. PATIENT IS AWAKE AND ALERT x3 SITTING IN A CHAIR AT BEDSIDE. PATIENT CURRENTLY RECEIVING A BREATHING TREATMENT. NO SIGNS OF DISTRESS OR SHORTNESS OF BREATH NOTED. PATIENT DENIES ANY PAIN AT THE MOMENT. IV SITE IS PATENT WITH NO SIGNS OF INFILTRATION. PATIENT IS TOLERATING OXYGEN AT 2L VIA NASAL CANNULA. PATIENT IN STABLE CONDITION. WILL CONTINUE TO MONITOR PATIENT FOR ANY CHANGES.
[2018-12-23 07:43] LABS: ALANINE AMINOTRANSFERASE 22 U/L (12-78); ALBUMIN 2.3 g/dL (3.4-4.8); ANION GAP 9 (5-15); ASPARTATE AMINOTRANSFERASE 28 U/L (10-37); CALCIUM 9.2 mg/dL (8.4-11.0); CHLORIDE 102 mmol/L (98-107); CREATININE 1.98 mg/dL (0.55-1.30); GLUCOSE 55 mg/dL (70-99); POTASSIUM 4.6 mmol/L (3.5-5.1); SODIUM SERUM 143 mmol/L (136-145); TOTAL BILIRUBIN 0.6 mg/dL (0.0-1.0); UREA NITROGEN, BLOOD 30 mg/dL (8-21)
[2018-12-23 07:47] LABS: BASOPHILS # (AUTO) 0.1 K/uL (0.0-0.2); BASOPHILS % (AUTO) 0.7 % (0.0-2.0); EOSINOPHILS # (AUTO) 0.3 K/uL (0.0-0.4); EOSINOPHILS % (AUTO) 2.9 % (0.0-4.0); HEMATOCRIT 27.9 % (36-54); HEMOGLOBIN 9.1 g/dL (14.0-18.0); LYMPHOCYTES # (AUTO) 1.2 K/uL (1.0-5.5); LYMPHOCYTES % (AUTO) 13.1 % (20.5-51.5); MEAN CORPUSCULAR HEMOGLOBIN 26 pg (27-31); MEAN CORPUSCULAR HGB CONC 32 % (32-36); MEAN CORPUSCULAR VOLUME 79 fL (79.0-98.0); MONOCYTES % (AUTO) 10.9 % (1.7-9.3); NEUTROPHILS # (AUTO) 6.5 K/uL (1.8-7.7); NEUTROPHILS % (AUTO) 72.4 % (40.0-70.0); PLATELET COUNT (AUTO) 400 K/uL (130-430); RED BLOOD CELL COUNT(AUTO) 3.53 MIL/uL (4.2-6.2); RED CELL DISTRIBUTION WIDTH 18.4 % (9.0-15.0)
[2018-12-23 08:00] VITALS: BP_SYST 124
[2018-12-23] MEDS: glipiZIDE XL 5 MG TAB ( GLUCOTROL XL) PO SCH (09:04)
[2018-12-23] MEDS: POTASSIUM CHLORIDE 8 MEQ TABLET.SA PO SCH (09:05)
[2018-12-23] MEDS: FUROSEMIDE 40 MG TABLET PO SCH (09:07)
[2018-12-23] MEDS: ATORVASTATIN 20 MG TABLET PO SCH (09:07)
[2018-12-23] MEDS: LISINOPRIL 10 MG TABLET (PRINIVIL) PO SCH (09:07)
[2018-12-23] MEDS: METHIMAZOLE 5 MG TABLET PO SCH (09:16)
--- NOTE | 2018-12-23 10:30 | NUR ---
RN ROUNDS: PATIENT IS AWAKE AND ALERT x3. PATIENT DENIES ANY PAIN AT THE MOMENT. NO SIGNS OF DISTRESS OR SHORTNESS OF BREATH NOTED. PATIENT IN STABLE CONDITION. WILL CONTINUE TO MONITOR PATIENT FOR ANY CHANGES.
[2018-12-23 12:00] VITALS: BP_SYST 145
--- NOTE | 2018-12-23 13:30 | NUR ---
CALLED: DR. CLARK CALLED AND WANTS TO TRANSFER THE PATIENT TO [facility] FOR [facility]. MD AWARE OF PATIENT'S STATUS. NEW ORDERS GIVEN.
--- NOTE | 2018-12-23 14:16 | NUR ---
RN ROUNDS: PATIENT IS AWAKE AND ALERT x3 IN BED. PATIENT DENIES ANY PAIN AT THE MOMENT. NO SIGNS OF DISTRESS OR SHORTNESS OF BREATH NOTED. PATIENT IN STABLE CONDITION. WILL CONTINUE TO MONITOR PATIENT FOR ANY CHANGES.
--- NOTE | 2018-12-23 16:15 | NUR ---
RN ROUNDS: PATIENT AWAKE AND ALERT x3 SITTING IN A CHAIR AT BEDSIDE. PATIENT DENIES ANY PAIN AT THE MOMENT. NO SIGNS OF DISTRESS OR SHORTNESS OF BREATH NOTED. PATIENT IN STABLE CONDITION. WILL CONTINUE TO MONITOR PATIENT FOR ANY CHANGES.
[2018-12-23 16:36] VITALS: BP_SYST 115
[2018-12-23] MEDS ORDERED: FURO-149 PO (16:55)
[2018-12-23] MEDS ORDERED: POTA8TAB4 PO (16:57)
[2018-12-23] MEDS ORDERED: ZOSPM2 IV (16:58)
[2018-12-23] MEDS ORDERED: AZITHROMAX IVPB (16:59)
[2018-12-23] MEDS ORDERED: ALBU2.5V7 INH ×2 (17:01)
[2018-12-23 17:02] VITALS: BP_SYST 115
[2018-12-23] MEDS ORDERED: ATRMDI INH (17:03)
[2018-12-23] MEDS ORDERED: IPRA0.2S53 IH (17:04)
[2018-12-23] MEDS: AZITHROMYCIN 500 MG in NS 250 ML IV SCH (18:00)
--- NOTE | 2018-12-23 18:10 | NUR ---
PT TRANSFERRED Report given to Rashad at [facility]. Transfer packet with Transfer Orders and Medication Reconciliation form given to EMT with report. Exit care provided. [facility] ID band removed, replaced with ID band with pt's name and . IV catheters intact with clean, dry dressing. All belongings sent with patient. Patient left floor via gurney escorted by EMT in no distress.
[2018-12-24] MEDS ORDERED: METHIMAZOLE 5 MG TABLET PO SCH (09:00)
== END 2018-12-23 18:15 | disposition short-term general hospital (02) | DRG 186 ==
LOC: SED 15:34 → STU 18:31
PROVIDERS: ADMIT Internal Medicine Hospice and Palliative Medicine; ATTEND Internal Medicine Hospice and Palliative Medicine
PROC: 30233K1 Transfusion of Nonautologous Frozen Plasma into Peripheral Vein, Percutaneous Approach (ICD-10-PCS; principal; 2018-12-20)
DX: J90 Pleural effusion, not elsewhere classified (principal); N17.0 Acute kidney failure with tubular necrosis; D68.9 Coagulation defect, unspecified; I48.20 Chronic atrial fibrillation, unspecified; D64.9 Anemia, unspecified; E11.22 Type 2 diabetes mellitus with diabetic chronic kidney disease; E78.5 Hyperlipidemia, unspecified; F17.200 Nicotine dependence, unspecified, uncomplicated; H54.61 Unqualified visual loss, right eye, normal vision left eye; I12.9 Hypertensive chronic kidney disease with stage 1 through stage 4 chronic kidney disease, or unspecified chronic kidney disease; N18.9 Chronic kidney disease, unspecified; N40.0 Benign prostatic hyperplasia without lower urinary tract symptoms; T45.515A Adverse effect of anticoagulants, initial encounter; M10.9 Gout, unspecified; E78.00 Pure hypercholesterolemia, unspecified; E66.9 Obesity, unspecified; Z68.30 Body mass index [BMI] 30.0-30.9, adult; Y92.89 Other specified places as the place of occurrence of the external cause; Z79.899 Other long term (current) drug therapy
CPT/HCPCS: 36415; 71045; 71250-TC; 76536-TC; 76604; 76700-TC; 80053; 81000-TC; 82378; 82962; 83880; 84484; 85025; 85610-TC; 86886; 86900; 86901; 87040-TC; 87070-TC; 87205-TC; 93005; 94640; 94760; 96365; 99285; G0378; J0456; J0696; J1815; J2543; J3480; J7050; J7060; J7613; P9059

== ENCOUNTER 2019-01-07 10:57 | Outpatient (CLI) | payer BC ==
[~2019-01-07 10:57] MED LIST changes: +ALBU2.5V7 INH; +ALLO100T91 PO; +ATRMDI INH; +AZITHROMAX IVPB; +FURO-149 PO; +FURO80TA86 PO; +IPRA0.2S53 IH; +METF-510 PO; +METO25TA6 PO; +POTA8TAB4 PO; +TAMS-11 PO; +ZOSPM2 IV
== END 2019-01-07 19:34 | disposition home or self-care (01) ==
LOC: SRD 10:57
PROVIDERS: ATTEND Specialist
DX: J90 Pleural effusion, not elsewhere classified (principal); I73.9 Peripheral vascular disease, unspecified; I11.9 Hypertensive heart disease without heart failure
CPT/HCPCS: 71046-TC

== ENCOUNTER 2019-05-22 10:36 | Outpatient (CLI) | payer BC ==
[~2019-05-22 10:36] MED LIST changes: -ALLO100T91 PO; -DORZ10DR10 OP; -FURO80TA86 PO; -HYDR12.585 PO; -METF-510 PO; -METO25TA6 PO; -TAMS-11 PO; -WARF2TAB2 PO
== END 2019-05-22 19:40 | disposition home or self-care (01) ==
LOC: SRD 10:36
DX: J18.9 Pneumonia, unspecified organism (principal); J90 Pleural effusion, not elsewhere classified
CPT/HCPCS: 71046-TC

== ENCOUNTER → 2019-11-01 | Outpatient (CLI) | payer BC | END | disposition home or self-care (01) | LOC: SRD 09:55 | PROVIDERS: ATTEND Specialist | DX: I51.7 Cardiomegaly (principal); J90 Pleural effusion, not elsewhere classified; I70.0 Atherosclerosis of aorta; R91.8 Other nonspecific abnormal finding of lung field | CPT/HCPCS: 71046-TC ==

== ENCOUNTER 2020-02-10 13:17 | Outpatient (CLI) | payer BC | END 2020-02-10 20:00 | disposition home or self-care (01) | LOC: SRD 13:17 | PROVIDERS: ATTEND Specialist | DX: J90 Pleural effusion, not elsewhere classified (principal); R91.8 Other nonspecific abnormal finding of lung field | CPT/HCPCS: 71046-TC; 76604 ==

== ENCOUNTER 2020-02-10 17:18 | Inpatient (IN) | payer BC, SELFPAY ==
[~2020-02-10] VITALS: Ht 175.3 cm; Wt 78.5 kg
[2020-02-10 17:24] VITALS: BP_SYST 162
[2020-02-10 19:20] LABS: BASOPHILS # (AUTO) 0.1 K/uL (0.0-0.2); EOSINOPHILS # (AUTO) 0.2 K/uL (0.0-0.4); EOSINOPHILS % (AUTO) 2.2 % (0.0-4.0); HEMATOCRIT 24.8 % (36-54); HEMOGLOBIN 7.8 g/dL (14.0-18.0); LYMPHOCYTES # (AUTO) 1.3 K/uL (1.0-5.5); MEAN CORPUSCULAR HEMOGLOBIN 23 pg (27-31); MEAN CORPUSCULAR HGB CONC 32 % (32-36); MEAN CORPUSCULAR VOLUME 74 fL (79.0-98.0); MONOCYTES % (AUTO) 10.6 % (1.7-9.3); NEUTROPHILS # (AUTO) 6.6 K/uL (1.8-7.7); NEUTROPHILS % (AUTO) 72.2 % (40.0-70.0); PLATELET COUNT (AUTO) 298 K/uL (130-430); RED BLOOD CELL COUNT(AUTO) 3.36 MIL/uL (4.2-6.2); RED CELL DISTRIBUTION WIDTH 19.6 % (9.0-15.0); WHITE BLOOD COUNT (AUTO) 9.1 K/uL (4.8-10.8)
[2020-02-10 19:59] LABS: ANION GAP 5 (5-15); CHLORIDE 104 mmol/L (98-107); CREATININE 2.03 mg/dL (0.55-1.30); GLUCOSE 95 mg/dL (70-99); POTASSIUM 3.5 mmol/L (3.5-5.1); SODIUM SERUM 143 mmol/L (136-145); UREA NITROGEN, BLOOD 37 mg/dL (8-21)
[2020-02-10 20:08] LABS: ALANINE AMINOTRANSFERASE 14 U/L (12-78); ALBUMIN 3.2 g/dL (3.4-4.8); ASPARTATE AMINOTRANSFERASE 13 U/L (10-37); BILIRUBIN,DIRECT 0.4 mg/dL (0.0-0.3); LIPASE 137 U/L (73-393); TOTAL BILIRUBIN 0.9 mg/dL (0.0-1.0)
--- NOTE | 2020-02-10 20:08 | NUR ---
Pt ambulatory to bed 6 for evaluation
--- NOTE | 2020-02-10 20:10 | NUR ---
Pt presents to ER c/o Abdominal discomfort, abd distension and SOB x 2 days. Pt reports sleeping in chair. Pt reports KNA. Pt able to speak full sentences, no acute distress.
--- NOTE | 2020-02-10 20:11 | NUR ---
ER at bedside re evaluating patient.
--- NOTE | 2020-02-10 20:15 | NUR ---
Patient will be admitted to care of Dr Servin. Admitted to Tele unit. Bed not provided. Belongings list completed. Complete and up to date summary report printed. SBAR report to be given at bedside with opportunity for questions.
--- NOTE | 2020-02-10 20:25 | NUR ---
EKG performed at by Lisa. Physician given copy of EKG for review.
[2020-02-10] MEDS ORDERED: cefTRIAXone 1 GM in D5W 50 ML IV ONE (20:30)
[2020-02-10] MEDS ORDERED: AZITHROMYCIN 500 MG in NS 250 ML IV ONE (20:30)
--- NOTE | 2020-02-10 20:40 | NUR ---
# 22 gauge angiocath placed to RBICEP. Use of asceptic technique. Opsite placed over site. Blood return noted. Flushed with 10 cc of normal saline. No evidence of infiltration noted. Patient tolerated well.
[2020-02-10] MEDS ORDERED: cefTRIAXone 1 GM VIAL ONE (21:12)
[2020-02-10] MEDS ORDERED: AZITHROMYCIN 500 MG/VIAL (ZITHROMAX) IV ONE (21:13)
--- NOTE | 2020-02-10 21:28 | NUR ---
Blood cultures obtained by termite technician.
[2020-02-10] MEDS ORDERED: HYDROcodone/ACETAMIN 5-325 MG TAB (NORCO/ VICODIN) PO PRN (22:45)
[2020-02-10] MEDS ORDERED: INSULIN REGULAR, HUMAN 100 UNITS/ML, 10 ML VIAL (humuLIN R) SUBCUT PRN (22:45)
[2020-02-10] MEDS ORDERED: MORPHINE 4 MG/ML INJ. SYRINGE IVP PRN (22:45)
[2020-02-10] MEDS ORDERED: ALBUTEROL SULFATE 0.083% 2.5 MG/3 ML VIAL.NEB INH PRN ×2 (22:45→23:00)
[2020-02-10] MEDS ORDERED: NALOXONE HCL 0.4 MG/ML AMP (NARCAN) IVP PRN (22:45)
[2020-02-10] MEDS ORDERED: IPRATROPIUM BROM 0.5 MG/2.5 ML VIAL.NEB (ATROVENT) INH SCH (23:00)
--- NOTE | 2020-02-10 23:15 | NUR ---
Patient will be admitted to care of Dr Servin. Admitted to tele unit. Will go to room 114. Belongings list completed. Complete and up to date summary report printed. SBAR report to be given at bedside with opportunity for questions.
--- NOTE | 2020-02-10 23:56 | NUR ---
ADMIT NOTE Received pt from ER to the floor with a diagnosis of Pneumonia. Admission process initiated. patient oriented to pain management, safety and call light-teach back done.
[2020-02-11 00:09] VITALS: BP_SYST 156
[2020-02-11 00:51] VITALS: BP_SYST 156
--- NOTE | 2020-02-11 02:38 | NUR ---
RN ROUNDS Received report from night nurse, patient sleeping, respirations even and unlabored, call light within reach, fall and safety measures in place.
--- NOTE | 2020-02-11 03:26 | NUR ---
CONSULTATION HE DO NOT WANT TO BE CALL ALL PULMO DOCTOR SAID DO NOT CALL THEM UNLESS IS STAT CONSULTATION
--- NOTE | 2020-02-11 04:19 | NUR ---
RN ROUNDS Patient continues to sleep, respirations even and unlabored, call light within reach, fall and safety measures in place.
--- NOTE | 2020-02-11 05:54 | NUR ---
RN ROUNDS/BLOOD SUGAR Patient awake, ambulated to bathroom with standby assistance, steady gait noted. Blood sugar check this am of 132. No insulin coverage needed. Patient sitting up in bed, denies any pain or discomfort at this time, plan of care discussed for the am.
[2020-02-11] MEDS ORDERED: IPRATROPIUM BROMIDE 17 mCg/ACTUATION, 12.9 GM AER.W.ADAP INH SCH (06:00)
[2020-02-11 07:16] LABS: BASOPHILS % (AUTO) 0.6 % (0.0-2.0); EOSINOPHILS # (AUTO) 0.2 K/uL (0.0-0.4); HEMATOCRIT 25.4 % (36-54); HEMOGLOBIN 7.8 g/dL (14.0-18.0); LYMPHOCYTES % (AUTO) 14.1 % (20.5-51.5); MEAN CORPUSCULAR HEMOGLOBIN 23 pg (27-31); MEAN CORPUSCULAR HGB CONC 31 % (32-36); MEAN CORPUSCULAR VOLUME 74 fL (79.0-98.0); MONOCYTES # (AUTO) 1.1 K/uL (0.0-1.0); MONOCYTES % (AUTO) 14.4 % (1.7-9.3); NEUTROPHILS # (AUTO) 5.1 K/uL (1.8-7.7); NEUTROPHILS % (AUTO) 68.9 % (40.0-70.0); PLATELET COUNT (AUTO) 290 K/uL (130-430); RED BLOOD CELL COUNT(AUTO) 3.42 MIL/uL (4.2-6.2); WHITE BLOOD COUNT (AUTO) 7.3 K/uL (4.8-10.8)
[2020-02-11] MEDS: ALBUTEROL SULFATE 0.083% 2.5 MG/3 ML VIAL.NEB INH SCH ×3 (07:32→21:00)
[2020-02-11] MEDS ORDERED: IPRATROPIUM BROM 0.5 MG/2.5 ML VIAL.NEB (ATROVENT) INH PRN (07:40)
[2020-02-11 07:42] LABS: ALANINE AMINOTRANSFERASE 12 U/L (12-78); ALBUMIN 3.1 g/dL (3.4-4.8); ANION GAP 8 (5-15); ASPARTATE AMINOTRANSFERASE 18 U/L (10-37); CALCIUM 8.8 mg/dL (8.4-11.0); CHLORIDE 104 mmol/L (98-107); CREATININE 1.95 mg/dL (0.55-1.30); GLUCOSE 140 mg/dL (70-99); POTASSIUM 3.2 mmol/L (3.5-5.1); SODIUM SERUM 143 mmol/L (136-145); TOTAL BILIRUBIN 0.8 mg/dL (0.0-1.0); UREA NITROGEN, BLOOD 37 mg/dL (8-21)
[2020-02-11 08:00] VITALS: BP_SYST 146
--- NOTE | 2020-02-11 08:00 | NUR ---
OPENING NOTES WANTED TO GO HOME, STATED HE WILL WAIT FOR MD TO DECIDE IF HE WILL GO HOME, STATED HE CANNOT SLEEP LAST NIGHT.AWAITING FOR MD TO SEE PATIENT.
[2020-02-11 08:11] LABS: RED CELL DISTRIBUTION WIDTH 19.1 % (9.0-15.0)
[2020-02-11] MEDS ORDERED: ZOLPIDEM TARTRATE 5 MG TABLET PO PRN (08:15)
[2020-02-11] MEDS ORDERED: POTASSIUM CHLORIDE 20 MEQ TAB.PRT.SR PO ONE (08:15)
[2020-02-11] MEDS ORDERED: FUROSEMIDE 40 MG TABLET ONE (09:06)
[2020-02-11] MEDS: glipiZIDE XL 5 MG TAB ( GLUCOTROL XL) PO SCH (09:48)
[2020-02-11] MEDS: ATORVASTATIN 20 MG TABLET PO SCH (09:49)
[2020-02-11] MEDS: FUROSEMIDE 40 MG TABLET PO SCH (09:49)
[2020-02-11] MEDS: methIMAzole 5 MG TABLET PO SCH (09:50)
[2020-02-11] MEDS: LISINOPRIL 10 MG TABLET (PRINIVIL) PO SCH (09:50)
--- NOTE | 2020-02-11 10:00 | NUR ---
SEEN BY MD DR CHICAS CAME TO SEE PT, POTTASIUM 3.2, KDUR GIVEN. AMBIEN TO BE GIVEN TONIGHT PRN, DECIDED TO STAY WILL WAIT FOR PULMONARY MD.
[2020-02-11 11:25] VITALS: BP_SYST 139
[2020-02-11] MEDS: IPRATROPIUM BROM 0.5 MG/2.5 ML VIAL.NEB (ATROVENT) INH SCH ×2 (13:36→21:01)
--- NOTE | 2020-02-11 15:00 | NUR ---
WANTED TO GO HOME PATIENT WANTED TO GO HOME, EXPLAINE THE RISK AND CONSEQUENCE OF LEAVING AMA, PATIENT CHANGED HIS MIND AND DECIDED TO STAY.
[2020-02-11 15:49] VITALS: BP_SYST 147
--- NOTE | 2020-02-11 18:30 | NUR ---
CLOSING NOTES DENIES SOB/ NO PAIN, TOOK DINNER.
--- NOTE | 2020-02-11 19:25 | NUR ---
OPENING NOTES PATIENT IS RESTING, NO SIGNS OF ACUTE RESPIRATORY DISTRESS, ROOM AIR. IV SITE PATENT, DRESSINGS C/D/I, IVF RUNNING. CALL LIGHT WITHIN REACH, BED ALARM ON, BED AT LOWEST POSITION. PATIENT DEMONSTRATES PROPER USAGE OF CALL LIGHT. WILL CONTINUE TO MONITOR.
[2020-02-11 20:00] VITALS: BP_SYST 139
[2020-02-11] MEDS ORDERED: AZITHROMYCIN 500 MG in NS 250 ML IV SCH (21:30)
--- NOTE | 2020-02-11 22:15 | NUR ---
PATIENT PROVIDED NEW LINEN AND WARM BLANKETS. NO SIGNS OF DISTRESS NOTED. WILL CONTINUE TO MONITOR.
--- NOTE | 2020-02-12 00:06 | NUR ---
PATIENT COMPLAINING THAT HE WAS UNABLE TO FALL SLEEP, PATIENT PREFERS TO SIT IN A CHAIR AND REST. BREATHING TREATMENT PROVIDED TO PATIENT AT THIS TIME. WILL CONTINUE TO MONITOR.
[2020-02-12 00:20] VITALS: BP_SYST 129
[2020-02-12] MEDS: ALBUTEROL SULFATE 0.083% 2.5 MG/3 ML VIAL.NEB INH SCH ×3 (01:28→13:51)
[2020-02-12] MEDS: IPRATROPIUM BROM 0.5 MG/2.5 ML VIAL.NEB (ATROVENT) INH SCH ×3 (01:28→13:51)
--- NOTE | 2020-02-12 04:12 | NUR ---
PATIENT IS BACK IN BED, NO SIGNS OF DISTRESS NOTED, EYES CLOSED. WILL CONTINUE TO MONITOR.
[2020-02-12 06:58] LABS: BASOPHILS # (AUTO) 0.1 K/uL (0.0-0.2); BASOPHILS % (AUTO) 0.7 % (0.0-2.0); EOSINOPHILS # (AUTO) 0.1 K/uL (0.0-0.4); EOSINOPHILS % (AUTO) 1.7 % (0.0-4.0); HEMATOCRIT 23.9 % (36-54); HEMOGLOBIN 7.4 g/dL (14.0-18.0); LYMPHOCYTES # (AUTO) 0.7 K/uL (1.0-5.5); LYMPHOCYTES % (AUTO) 10.4 % (20.5-51.5); MEAN CORPUSCULAR HEMOGLOBIN 23 pg (27-31); MEAN CORPUSCULAR HGB CONC 31 % (32-36); MEAN CORPUSCULAR VOLUME 73 fL (79.0-98.0); MONOCYTES # (AUTO) 0.8 K/uL (0.0-1.0); MONOCYTES % (AUTO) 11.9 % (1.7-9.3); NEUTROPHILS # (AUTO) 5.3 K/uL (1.8-7.7); NEUTROPHILS % (AUTO) 75.3 % (40.0-70.0); PLATELET COUNT (AUTO) 253 K/uL (130-430); RED BLOOD CELL COUNT(AUTO) 3.26 MIL/uL (4.2-6.2); RED CELL DISTRIBUTION WIDTH 19.6 % (9.0-15.0); WHITE BLOOD COUNT (AUTO) 7.1 K/uL (4.8-10.8)
--- NOTE | 2020-02-12 07:25 | NUR ---
CLOSING NOTES PATIENT IS RESTING, NO SIGNS OF ACUTE RESPIRATORY DISTRESS, ROOM AIR. PATIENT IS SITTING AT THE CHAIR BY BEDSIDE. IV SITE PATENT, DRESSINGS C/D/I. CALL LIGHT WITHIN REACH, BED AT LOWEST POSITION. PATIENT USED CALL LIGHT THROUGHOUT SHIFT. ALL NEEDS MET THROUGHOUT SHIFT, ICE AND ICE WATER PROVIDED. WILL ENDORSE CARE TO ONCOMING SHIFT.
[2020-02-12 07:35] VITALS: BP_SYST 166
--- NOTE | 2020-02-12 07:35 | NUR ---
INITIAL ROUNDS Received pt AAOx4, sitting in bedside chair, no s/s resp distress, no c/o pain or discomfort. Plan of care for the day reviewed with pt-pt verbalized his understanding. Pt stated he is very tired, that he has not slept since he has been here and that he hopes the doctor sends him home today. Pain management, disease process, skin and safety discussed-teach back done. Call light within reach.
[2020-02-12 07:38] LABS: ALANINE AMINOTRANSFERASE 16 U/L (12-78); ALBUMIN 2.9 g/dL (3.4-4.8); ANION GAP 11 (5-15); ASPARTATE AMINOTRANSFERASE 19 U/L (10-37); CALCIUM 8.7 mg/dL (8.4-11.0); CHLORIDE 103 mmol/L (98-107); CREATININE 2.03 mg/dL (0.55-1.30); GLUCOSE 127 mg/dL (70-99); POTASSIUM 3.4 mmol/L (3.5-5.1); SODIUM SERUM 144 mmol/L (136-145); TOTAL BILIRUBIN 0.6 mg/dL (0.0-1.0); UREA NITROGEN, BLOOD 34 mg/dL (8-21)
[2020-02-12] MEDS: methIMAzole 5 MG TABLET PO SCH (08:52)
[2020-02-12] MEDS: glipiZIDE XL 5 MG TAB ( GLUCOTROL XL) PO SCH (08:52)
[2020-02-12] MEDS: ATORVASTATIN 20 MG TABLET PO SCH (08:53)
[2020-02-12] MEDS: LISINOPRIL 10 MG TABLET (PRINIVIL) PO SCH (08:53)
[2020-02-12] MEDS: FUROSEMIDE 40 MG TABLET PO SCH (08:53)
[2020-02-12] MEDS ORDERED: FUROSEMIDE 20 MG/2 ML VIAL IVP ONE (10:15)
--- NOTE | 2020-02-12 10:45 | NUR ---
REFUSED TELEMETRY AND TO AMBULATE WITH NURSE Pt upset about MD placing him back onto Telemetry-pt flat out refused, yelled that he wanted to talk to the doctor now, he can't sleep, he wants to go home. Pt informed that the doctor wants me to ambulate with him to assess how he does with his breathing-pt yelled '"I walk fine, I can't walk very far any ways, just call that doctor I want to talk to him now."
--- NOTE | 2020-02-12 10:53 | NUR ---
CONSULTATION PAGED/CALLED Reason for Consultation: CHF Person Who was Notified: JOYCE Consulting Physician: NANCY Ordering Physician: EDUARDO
--- NOTE | 2020-02-12 11:45 | NUR ---
ROUNDS/ Pt still refusing to be placed on telemetry, pt did take the IV Lasix as ordered by . Observed pt walk to the bathroom with steady gait and no c/o shortness of breath, pt again refused to walk with this nurse. Dr. Servin is here and informed that the pt wants to talk to him, that the pt is refusing the telemetry and refusing to ambulate with nursing. MD also informed that the pt stated that if he is not seen by Dr. Servin he will leave AMA- stated that he will see him when he can.
[2020-02-12] MEDS ORDERED: AMOX-426 PO (15:45)
[2020-02-12 16:38] VITALS: BP_SYST 125
--- NOTE | 2020-02-12 17:15 | NUR ---
PATIENT DISCHARGED Patient given medication reconciliation form and D/C instructions. Exit Care on PNA and Amoxicillin explained and provided to patient. Patient verbalized his understanding. MD discussed with patient the results and treatment provided. Ambulatory with steady gait for discharge to home. Patient in stable condition, ID band removed. IV catheter removed, intact and dressing applied, no active bleeding. Rx of Amoxicillin sent via [facility]. Patient educated on pain management. All belongings sent with patient. Patient left floor via wheelchair to private vehicle in no distress.
--- NOTE | 2020-02-17 14:08 | NUR ---
Discharge Follow Up Phone Call Phoned patient, , on 02/13/20 and left a voicemail message. Phoned patient again today. Patient stated he was doing okay. He filled his prescription and is taking his medication as directed. He has had a visit from a home health nurse (must have been arranged by Surinder LUTHER). He stated that his son gave him a nebulizer. Patient wants the medication for it. Discussed that he should call his PCP to discuss options. His PCP will know side effects and contraindications. Patient agreed to follow up with his PCP. He is somewhat sob upon exertion, but not when idle. No other questions or concerns.
== END 2020-02-12 17:15 | disposition home or self-care (01) | DRG 291 ==
LOC: SED 17:18 → STU 20:44 → SMU 02-11 11:16 → STU 02-12 10:57
PROVIDERS: ADMIT Internal Medicine Hospice and Palliative Medicine; ATTEND Internal Medicine Hospice and Palliative Medicine
DX: I11.0 Hypertensive heart disease with heart failure (principal); J18.9 Pneumonia, unspecified organism; E46 Unspecified protein-calorie malnutrition; J44.0 Chronic obstructive pulmonary disease with (acute) lower respiratory infection; N17.9 Acute kidney failure, unspecified; E44.0 Moderate protein-calorie malnutrition; I50.33 Acute on chronic diastolic (congestive) heart failure; E11.9 Type 2 diabetes mellitus without complications; I48.91 Unspecified atrial fibrillation; D63.8 Anemia in other chronic diseases classified elsewhere; E78.5 Hyperlipidemia, unspecified; M10.9 Gout, unspecified; H54.61 Unqualified visual loss, right eye, normal vision left eye; N40.0 Benign prostatic hyperplasia without lower urinary tract symptoms; Z20.828 Contact with and (suspected) exposure to other viral communicable diseases; Z79.01 Long term (current) use of anticoagulants; Z83.3 Family history of diabetes mellitus; Z86.73 Personal history of transient ischemic attack (TIA), and cerebral infarction without residual deficits; Z68.25 Body mass index [BMI] 25.0-25.9, adult; Z95.0 Presence of cardiac pacemaker
CPT/HCPCS: 36415; 71045; 76604; 80048; 80053; 80076; 82962; 83690-TC; 83880; 84484; 85025; 87040-TC; 93005; 93306; 94640; 96365; 96367; 99285; G0378; J0456; J0696; J1815; J1940; J7050; J7060; J7613

== ENCOUNTER 2020-03-25 14:28 | Emergency (ER) | payer BC, SELFPAY ==
[~2020-03-25] VITALS: Ht 182.9 cm; Wt 104.3 kg
[~2020-03-25 14:28] MED LIST changes: +AMOX-426 PO; -AZITHROMAX IVPB; -ZOSPM2 IV
[2020-03-25 14:45] VITALS: BP_SYST 117
--- NOTE | 2020-03-25 14:45 | NUR ---
Patient triaged and placed in TENT 2. VSS and patient appears in no acute distress at this time. Accompanied by SON, awaiting available bed, and MD notified of need for MSE.
[2020-03-25] MEDS ORDERED: MAG HYDROX/AL HYDROX/SIMETH 30 ML, DICYCLOMINE HCL 20 MG, LIDOCAINE VISCOUS 2% 15ML (PO... PO ONE ×3 (15:15)
--- NOTE | 2020-03-25 15:45 | NUR ---
Placed in HALLWAY BED 1 . Side rails up. Report given to ELLIS ROSE.
--- NOTE | 2020-03-25 16:00 | NUR ---
Pt walked in to ER as instructed by PMD for blood transfusion. Reports gen weakness x1 week, labs drawn by PMD show anemia. V/S stable, pt is afebrile. Currently resting in bed, no distress noted.
[2020-03-25 16:03] LABS: BASOPHILS # (AUTO) 0.1 K/uL (0.0-0.2); EOSINOPHILS # (AUTO) 0.1 K/uL (0.0-0.4); RED CELL DISTRIBUTION WIDTH 21.7 % (9.0-15.0)
[2020-03-25 16:07] LABS: EOSINOPHILS % (AUTO) 1.2 % (0.0-4.0); LYMPHOCYTES # (AUTO) 0.7 K/uL (1.0-5.5); MEAN CORPUSCULAR HEMOGLOBIN 20 pg (27-31); MEAN CORPUSCULAR HGB CONC 31 % (32-36); MEAN CORPUSCULAR VOLUME 65 fL (79.0-98.0); MONOCYTES # (AUTO) 0.9 K/uL (0.0-1.0); MONOCYTES % (AUTO) 15.3 % (1.7-9.3); NEUTROPHILS # (AUTO) 4.3 K/uL (1.8-7.7); NEUTROPHILS % (AUTO) 70.5 % (40.0-70.0); PLATELET COUNT (AUTO) 162 K/uL (130-430); RED BLOOD CELL COUNT(AUTO) 2.75 MIL/uL (4.2-6.2); WHITE BLOOD COUNT (AUTO) 6.1 K/uL (4.8-10.8)
--- NOTE | 2020-03-25 16:15 | NUR ---
ER Dr. Manuel at bedside examining patient.
[2020-03-25 16:16] LABS: INR 2.6 (0.80-1.20)
[2020-03-25 16:17] LABS: ALANINE AMINOTRANSFERASE 44 U/L (12-78); ALBUMIN 2.9 g/dL (3.4-4.8); ASPARTATE AMINOTRANSFERASE 43 U/L (10-37); CALCIUM 8.5 mg/dL (8.4-11.0); CHLORIDE 102 mmol/L (98-107); CREATININE 2.48 mg/dL (0.55-1.30); GLUCOSE 102 mg/dL (70-99); POTASSIUM 3.3 mmol/L (3.5-5.1); SODIUM SERUM 138 mmol/L (136-145); UREA NITROGEN, BLOOD 68 mg/dL (8-21)
[2020-03-25 16:21] LABS: HEMATOCRIT 17.8 % (36-54); HEMOGLOBIN 5.4 g/dL (14.0-18.0)
[2020-03-25 16:25] LABS: ANION GAP 10 (5-15)
--- NOTE | 2020-03-25 17:10 | NUR ---
# 18 gauge angiocath placed to Right wrist. Use of asceptic technique. Opsite placed over site. Blood return noted. Flushed with 10 cc of normal saline. No evidence of infiltration noted. Patient tolerated well.
[2020-03-25 17:15] LABS: PROTHROMBIN TIME 26.2 SECS (9.5-12.5)
--- NOTE | 2020-03-25 19:16 | NUR ---
Care of patient endorsed to ROSE Hooper. Pt currently resting in hallway bed, no distress noted.
--- NOTE | 2020-03-25 19:23 | NUR ---
BEDSIDE REPORT TAKEN FROM FIELD INTERVIEWERROSE CORRAL PT RESTING QUIETLY VITAL SIGNS STABLE WILL CONTINUE TO MONITOR
--- NOTE | 2020-03-25 19:45 | NUR ---
Note undone in EDM - 03/25/20 at 1951 by JAY Consent signed by pt agreeing to administration of blood. Blood has been type and crossmatched. Blood sent from blood bank. Information on unit of blood checked against patient wristband at bedside by two nurses. All information matches. Patient or responsible libertarian informed of potential complications associated with blood transfusion. Informed of possible transfusion reaction symptoms. Aware of need to notify nurse at once of itching, shortness of breath, flushing, feeling of impending doom, or other symptoms not previously present. Vital signs taken within 5 minutes prior to initiation of transfusion. RN will remain with patient for first 15 minutes of transfusion at which time vital signs will be re-assessed.
--- NOTE | 2020-03-25 19:45 | NUR ---
1 UNIT OF PRBC VERIFIED WITH [employer]ER MAREN STARTED O POSITIVE BLOOD BEGUN IN 20G RIGHT HAND AT A RATE OF 75ML/HR FOR THE FIRST 15 MINUTES PT VITALS BP-135/83 PULSE-90 RESP-18 TEMP-96.9 ORAL PT TOLERATING WELL WILL CONTINUE TO MONITOR
--- NOTE | 2020-03-25 19:45 | NUR ---
Consent signed by pt agreeing to administration of blood. Blood has been type and crossmatched. Blood sent from blood bank. Information on unit of blood checked against patient wristband at bedside by two nurses. All information matches. Patient or responsible republican informed of potential complications associated with blood transfusion. Informed of possible transfusion reaction symptoms. Aware of need to notify nurse at once of itching, shortness of breath, flushing, feeling of impending doom, or other symptoms not previously present. Vital signs taken within 5 minutes prior to initiation of transfusion. ROSE HALE will remain with patient for first 15 minutes of transfusion at which time vital signs will be re-assessed.
--- NOTE | 2020-03-25 21:48 | NUR ---
PT UNIT 1 OF 2 PRBC TRANSFUSION COMPLETED PT VITALS STABLE PT HAS NO REACTION NO REDNESS, NO ITCHING, NO SHORTNESS OF BREATH, NO CHEST PAIN, PT RESTING IN BED QUIETLY DENIES PAIN. WILL CONTINUE TO MONITOR
[2020-03-25] MEDS ORDERED: ACETAMINOPHEN 500 MG TABLET PO ONE (22:00)
--- NOTE | 2020-03-25 22:04 | NUR ---
UNIT 2 OF 2 PRBC UNIT STARTED ON PT RIGHT HAND 20G AT A RATE OF 75ML/HR TO BEGIN WITH MONITORING PT VITALS FOR TRANSFUSION REACTION BLOOD UNIT VERIFIED WITH PR[employer]ISATION MANAGER MAREN
[2020-03-25] MEDS ORDERED: ACETAMINOPHEN 500 MG TABLET ONE (22:16)
--- NOTE | 2020-03-25 22:19 | NUR ---
AFTER FIRST 15MINUTES OF TRANSFUSION PT HAS NO REACTION TO UNIT 2 OF 2 PRBC RATE INCREASED TO 150ML/HR BP- 154/83 HR- 80 RESP- 18 PULSE OX- 98% TEMP- 97.8 PO WILL CONTINUE TO MONITOR PT DENIES ALL PAIN NO SHORTNESS OF BREATH NO ITHCING BURNING OR REDNESS
--- NOTE | 2020-03-25 23:20 | NUR ---
PT TOLERATING BLOOD TRANSFUSION WELL DENIES SOB AND CHEST PAIN, NO REDNESS, NO ITCHING. PT VITAL SIGNS STABLE WILL CONTINUE TO MONITOR.
--- NOTE | 2020-03-26 00:15 | NUR ---
PRBC TRANSFUSION COMPLETE. PT TOLERATED WELL NO REACTION NOTED NO SOB/ NO CHEST PAIN. PT HAS NO RASH, REDNESS, ITCHING OR BURNING. VITAL SIGNS STABLE WILL CONTINUE TO MONITOR
[2020-03-26 00:30] VITALS: BP_SYST 137
--- NOTE | 2020-03-26 00:30 | NUR ---
Patient given written and verbal discharge instructions and verbalizes understanding. ER MD LUJAN discussed with patient the results and treatment provided. Patient in stable condition. ID arm band removed. IV catheter removed intact and dressing applied, no active bleeding. Patient educated on pain management and to follow up with PMD. Pain Scale 0/10. Opportunity for questions provided and answered. Medication side effect fact sheet provided.
== END 2020-03-26 00:30 | disposition home or self-care (01) ==
LOC: SED 14:28
DX: D64.9 Anemia, unspecified (principal); I11.0 Hypertensive heart disease with heart failure; I50.9 Heart failure, unspecified; E78.00 Pure hypercholesterolemia, unspecified; I48.91 Unspecified atrial fibrillation; N28.9 Disorder of kidney and ureter, unspecified; E11.29 Type 2 diabetes mellitus with other diabetic kidney complication; N40.0 Benign prostatic hyperplasia without lower urinary tract symptoms; Z85.9 Personal history of malignant neoplasm, unspecified; Z79.899 Other long term (current) drug therapy
CPT/HCPCS: 36415; 36430; 80053; 85610; 85025; 85730; 86886; 86900; 86901; 86920; 93005; 99285; P9021

== ENCOUNTER 2020-04-20 11:40 | Emergency (ER) | payer BC, SELFPAY ==
[~2020-04-20] VITALS: Ht 175.3 cm; Wt 104.3 kg
[2020-04-20 12:11] VITALS: BP_SYST 160
[2020-04-20] MEDS ORDERED: ONDANSETRON 4 MG ODT TAB PO ONE (12:30)
[2020-04-20] MEDS ORDERED: traMADol HCL HCL 50 MG TABLET (ULTRAM) PO ONE (12:30)
[2020-04-20] MEDS ORDERED: traMADol HCL HCL 50 MG TABLET (ULTRAM) ONE (12:39)
[2020-04-20 12:57] LABS: EOSINOPHILS % (AUTO) 0.1 % (0.0-4.0); HEMOGLOBIN 7.6 g/dL (14.0-18.0); LYMPHOCYTES # (AUTO) 0.6 K/uL (1.0-5.5); LYMPHOCYTES % (AUTO) 4.8 % (20.5-51.5); MEAN CORPUSCULAR HEMOGLOBIN 20 pg (27-31); MEAN CORPUSCULAR HGB CONC 30 % (32-36); MEAN CORPUSCULAR VOLUME 67 fL (79.0-98.0); MONOCYTES # (AUTO) 1.4 K/uL (0.0-1.0); MONOCYTES % (AUTO) 11.6 % (1.7-9.3); PLATELET COUNT (AUTO) 282 K/uL (130-430); RED BLOOD CELL COUNT(AUTO) 3.71 MIL/uL (4.2-6.2); RED CELL DISTRIBUTION WIDTH 25.3 % (9.0-15.0); WHITE BLOOD COUNT (AUTO) 11.7 K/uL (4.8-10.8)
[2020-04-20 13:00] LABS: BASOPHILS % (AUTO) 0.2 % (0.0-2.0); NEUTROPHILS # (AUTO) 9.7 K/uL (1.8-7.7); NEUTROPHILS % (AUTO) 83.3 % (40.0-70.0)
[2020-04-20 13:16] LABS: INR 2.5 (0.80-1.20)
[2020-04-20 13:54] LABS: ANION GAP 10 (5-15); CALCIUM 9.9 mg/dL (8.4-11.0); CHLORIDE 99 mmol/L (98-107); CREATININE 1.84 mg/dL (0.55-1.30); GLUCOSE 162 mg/dL (70-99); POTASSIUM 3.2 mmol/L (3.5-5.1); SODIUM SERUM 140 mmol/L (136-145); UREA NITROGEN, BLOOD 37 mg/dL (8-21)
[2020-04-20 14:00] LABS: ALANINE AMINOTRANSFERASE 17 U/L (12-78); ALBUMIN 3.4 g/dL (3.4-4.8); ASPARTATE AMINOTRANSFERASE 23 U/L (10-37)
[2020-04-20] MEDS ORDERED: cefTRIAXone 1 GM VIAL ONE (14:28)
[2020-04-20] MEDS ORDERED: ACET325T PO (14:29)
[2020-04-20] MEDS ORDERED: CEPH-568 PO (14:29)
[2020-04-20] MEDS ORDERED: cefTRIAXone 1 GM in LIDOCAINE 1%, 20 ML MDV 2.1 ML IM ONE (14:30)
[2020-04-20 14:47] VITALS: BP_SYST 126
== END 2020-04-20 14:53 | disposition home or self-care (01) ==
LOC: SED 11:40
DX: M25.532 Pain in left wrist (principal); I11.0 Hypertensive heart disease with heart failure; I50.9 Heart failure, unspecified; I48.91 Unspecified atrial fibrillation; E11.29 Type 2 diabetes mellitus with other diabetic kidney complication; E78.00 Pure hypercholesterolemia, unspecified; M10.9 Gout, unspecified; N40.0 Benign prostatic hyperplasia without lower urinary tract symptoms
CPT/HCPCS: 29125; 36415; 73090; 73130; 80053; 84484; 85025; 85610; 85730; 93005; 93971; 96372; 99285; J0696; Q0162